=== PATIENT | female | born 1955 | race Caucasian/White ===

== ENCOUNTER 2017-03-09 15:26 | Emergency (ER) | payer OTHER ==
[~2017-03-09] VITALS: Ht 165.1 cm; Wt 92.1 kg
[~2017-03-09 15:26] MED LIST: CIPRO500 MG PO; HYDROCODON-ACE1 EAC7 PO; KEFLEX500 MG PO; MOTRIN400 MG PO; MOTRIN600 MG PO; NOHOMEMEDS; NORCO 5/3251 TABLET PO; PYRIDIUM200 MG PO
[2017-03-09 16:15] LABS: ADD MIUA? YES; BILIRUBIN NEGATIVE; BLOOD NEGATIVE; COLOR AMBER ((YELLOW)); GLUCOSE (STRIP) NEGATIVE; KETONES 5; LEUKOCYTES NEGATIVE; NITRITE NEGATIVE; PROTEIN (STRIP) 30; SPECIFIC GRAVITY 1.029 (1.000-1.030)
[2017-03-09 16:21] LABS: BACTERIA RARE /HPF; EPITHELIAL CELLS 1+ /HPF; MUCUS TRACE /LPF; RED BLOOD CELLS 0-5 /HPF (0-5); UCUL ADDED? NO; WHITE BLOOD CELLS 0-5 /HPF (0-5)
[2017-03-09 17:23] LABS: HEMATOCRIT 42.1 % (36.0-46.0); MCH 32.8 PG (29.0-34.0); MCHC 36.3 G/DL (30.0-36.0); MCV 90.3 FL (83-99); MEAN PLAT.VOLUME 10.4 uM^3 (9.5-12.4); PLATELET COUNT 228 K/uL (156-360); RBC DIS.WIDTH-CV 11.4 % (11.8-14.6); RBC DIS.WIDTH-SD 37.7 % (39-53); RED BLOOD COUNT 4.66 M/uL (3.80-5.20); WHITE BLOOD COUNT 5.5 K/uL (4.1-10.2)
[2017-03-09 17:31] LABS: CHLORIDE 107 mEq/L (99-109); POTASSIUM 3.9 mEq/L (3.7-5.4); SODIUM 141 mEq/L (136-147)
[2017-03-09 17:33] LABS: GLUCOSE 152 mg/dL (70-99)
[2017-03-09 17:34] LABS: ANION GAP 11 MEQ/L (2-14)
[2017-03-09 17:37] LABS: GFR ESTIMATE (CALCULATED) > 59 mL/min/
[2017-03-09 17:38] LABS: UREA NITROGEN (BUN) 17 mg/dL (9-23)
[2017-03-09 18:20] VITALS: BP 165/106
== END 2017-03-09 18:21 | disposition home or self-care (01) ==
LOC: EME 15:26
PROVIDERS: Physician Assistant
DX: R10.9 Unspecified abdominal pain (principal); I10 Essential (primary) hypertension; Z87.440 Personal history of urinary (tract) infections
CPT/HCPCS: 74176; 80048; 81003; 85027; 99281; 99283